=== PATIENT | male | born 2000 | race Caucasian/White ===

== ENCOUNTER 2023-10-01 14:29 | Emergency (ER) | payer BC, SELFPAY ==
[2023-10-01 14:35] VITALS: BP 138/71; PULSE 74; TEMP 37; O2SAT 97; BMI 32.1
--- NOTE | 2023-10-01 14:48 | ED.GENADUL1 ---
HPI HPI - General Adult General Chief complaint: Skin/Abscess/Foreign Body Stated complaint: SORE THROAT Time Seen by Provider: 10/01/23 14:47 Source: patient Mode of arrival: walk-in Limitations: no limitations History of Present Illness HPI narrative: This patient is here complaining of pelvic pain and swelling near the left jaw area. He says been bothering him for approximately 48 hours. He is not running a fever at home he is aware of. His female home extension agent was also sick and was told that she had a viral infection . He has not lost his voice. He does not have earache at this time it is more in the submandibular and parotid area. He has not had any history of mononucleosis previously. He says he just has felt very weak and tired recently. He has not had nausea vomiting or diarrhea. There is no shortness of breath cough or congestion. No runny nose no headache no pain in his neck. Related Data Home Medications ?Medication ?Instructions ?Recorded ?Confirmed No Known Home Medications 10/01/23 10/01/23 Allergies Allergy/AdvReac Type Severity Reaction Status Date / Time No Known Drug Allergies Allergy Verified 10/01/23 14:35 Opioid HPI Opioid Management Most Recent Opioid Data: No Data to Display Exam Narrative Exam Narrative: Patient is awake alert pleasant vital signs are stable does not appear ill or toxic. Phonation, deglutition, airway are all normal there is no stridor there is no posturing or drooling. There is no trismus he does not have a hot potato breath. He has had previous tonsillectomy. Examining the oral cavity the posterior pharynx is normal. There is no exudate or fetid smell. Dentition was percussed is nontender the gingival surfaces are normal the buccal mucosa is normal the uvula and palate are normal. There is no conjunctivitis. He does however have scattered cervical adenitis anterior posterior cervical chain positive. Examination of his abdomen I do not feel enlargement of the spleen. Pulse is regular. Constitutional Vital Signs, click to edit/add: Last Vital Signs Temp 98.6 F 10/01/23 14:35 Pulse 74 10/01/23 14:35 Resp 18 10/01/23 14:35 BP 138/71 10/01/23 14:35 Pulse Ox 97 10/01/23 14:35 O2 Del Method Room Air 10/01/23 14:35 Course Vital Signs Vital signs: Vital Signs Temperature 98.6 F 10/01/23 14:35 Pulse Rate 74 10/01/23 14:35 Respiratory Rate 18 10/01/23 14:35 Blood Pressure 138/71 10/01/23 14:35 Pulse Oximetry 97 10/01/23 14:35 Oxygen Delivery Method Room Air 10/01/23 14:35 Temperature 98.6 F 10/01/23 14:35 Pulse Rate 74 10/01/23 14:35 Respiratory Rate 18 10/01/23 14:35 Blood Pressure 138/71 10/01/23 14:35 Pulse Oximetry 97 10/01/23 14:35 Oxygen Delivery Method Room Air 10/01/23 14:35 Medical Decision Making MDM Narrative Medical decision making narrative: This patient has some lymph nodes in the anterior and posterior cervical chain as well as feeling tired and fatigued. In fact his mononucleosis test here is positive. I do not detect splenomegaly. We discussed the findings and symptomatic recommendations care Lab Data Labs: Lab Results 10/01/23 10/01/23 10/01/23 Range/Units 14:51 14:52 14:56 WBC 12.0 H (4.0-11.0) 10^3/uL RBC 4.58 L (4.70-6.10) 10^6/uL Hgb 13.8 L (14.0-18.0) g/dL Hct 41.4 L (42.0-54.0) % MCV 90.4 (80.0-94.0) fL MCH 30.1 (25.9-34.0) pg MCHC 33.3 (29.9-35.2) g/dL RDW 13.2 (11.0-15.0) % Plt Count 207 (150-450) 10^3/uL MPV 9.4 L (9.5-13.5) fL Monoscreen Positive A (NEGATIVE) SARS-CoV-2 Ag (CV2AG) Negative (NEGATIVE) Streptococcus Screen Negative Discharge Plan Discharge Stand Alone Forms: Portal Instructions Chief Complaint: Skin/Abscess/Foreign Body Clinical Impression: Mononucleosis Patient Disposition: Home, Self-Care Time of Disposition Decision: 15:33 Prescriptions / Home Meds: No Action No Known Home Medications Print Language: Romanian Additional Instructions: Rest, fluids ,anti-inflammatories, healthy nutrition Referrals: Physician,Non-Staff, [Primary Care Provider] - 1 week
--- NOTE | 2023-10-01 14:56 | PC.NURSE ---
pt c/o sore throat mostly on L side
[2023-10-01 15:05] LABS: Hematocrit 41.4 % (42.0-54.0); Hemoglobin 13.8 g/dL (14.0-18.0); Mean Corpuscular HGB Conc 33.3 g/dL (29.9-35.2); Mean Corpuscular Hemoglobin 30.1 pg (25.9-34.0); Mean Corpuscular Volume 90.4 fL (80.0-94.0); Mean Platelet Volume 9.4 fL (9.5-13.5); Platelet Count 207 10^3/uL (150-450); Red Blood Count 4.58 10^6/uL (4.70-6.10); Red Cell Distribution Width 13.2 % (11.0-15.0)
[2023-10-01 15:18] LABS: Internal Control Within Normal Limits; Strep A Antigen Screen Negative
[2023-10-01 15:26] LABS: Internal Control Within Normal Limits; SARS-CoV-2 Ag NEGATIVE (NEGATIVE)
[2023-10-01 15:26] LABS: Internal Control Within Normal Limits; Mono Screen POSITIVE (NEGATIVE)
[2023-10-01 15:47] LABS: Band Neutrophils Absolute 0.2 10^3/uL (0.0-0.3)
[2023-10-01 15:48] LABS: Anisocytosis 1+; Atypical Lymphocytes Abs Man 3.36
== END 2023-10-01 15:45 | disposition home or self-care (01) ==
PROVIDERS: Emergency Provider Emergency Medicine Emergency Medical Services
DX: B27.90 Infectious mononucleosis, unspecified without complication (principal); Z20.822 Contact with and (suspected) exposure to COVID-19
CPT/HCPCS: 36415; 85007; 85027; 86308; 87070; 87811; 87880; 99285

== ENCOUNTER 2024-07-27 15:22 | Emergency (ER) | payer OTHER, SELFPAY ==
[2024-07-27 15:25] VITALS: BP 145/98; PULSE 83; TEMP 36.9; O2SAT 100; BMI 30.4
[2024-07-27 15:33] VITALS: O2SAT 100
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
[2024-07-27] MEDS: ADACEL DIPH,PERTUSS(ACELL),TET VAC/PF 0.5 ML ADULT SYRINGE IM (15:41)
[2024-07-27] MEDS: IBUPROFEN 400 MG TABLET 800 MG PO (16:39)
== END 2024-07-27 16:57 | disposition home or self-care (01) ==
PROVIDERS: Emergency Provider Emergency Medicine
DX: S09.8XXA Other specified injuries of head, initial encounter (principal); V89.2XXA Person injured in unspecified motor-vehicle accident, traffic, initial encounter; S93.401A Sprain of unspecified ligament of right ankle, initial encounter; M25.571 Pain in right ankle and joints of right foot; S00.01XA Abrasion of scalp, initial encounter; L53.8 Other specified erythematous conditions; R51.9 Headache, unspecified; Z23 Encounter for immunization
CPT/HCPCS: 70450; 72125; 73610; 90471; 90715; 99284